=== PATIENT | female | born 1985 | race Hispanic/Latino ===

== ENCOUNTER 2020-04-12 15:09 | Emergency (ER) | payer BC, OTHER ==
[~2020-04-12 15:09] MED LIST: ACET-2247 PO; PREN1TAB80 PO
[2020-04-12 15:27] LABS: BASOPHILS % (AUTO) 0.4 % (0.0-5.0); EOSINOPHILS % (AUTO) 0.4 % (0.0-8.0); HEMATOCRIT 39.3 % (36-48); MEAN CORPUSCULAR HEMOGLOBIN 29.5 pg (27.0-33.0); MEAN CORPUSCULAR HGB CONC 33.8 g/dL (32.0-36.0); MEAN CORPUSCULAR VOLUME 87.1 fL (79-99); MONOCYTES % (AUTO) 5.3 % (3.0-13.0); NEUTROPHILS % (AUTO) 69.8 % (40.0-77.0); PLATELET COUNT (AUTO) 247 K/uL (130-400); RED BLOOD CELL COUNT(AUTO) 4.51 MIL/uL (4.00-5.50); WHITE BLOOD COUNT (AUTO) 8.2 K/uL (4.8-10.8)
[2020-04-12] MEDS ORDERED: ASPIRIN 325 MG TABLET ONE (15:33)
[2020-04-12 15:47] LABS: CREATININE 0.7 mg/dL (0.5-1.5); POTASSIUM 3.7 mmol/L (3.5-5.1)
[2020-04-12 15:50] LABS: INR 0.95 (0.85-1.15); PARTIAL THROMBOPLASTIN TIME 25.2 SEC (26.3-35.5); PROTHROMBIN TIME 10.3 SEC (9.6-11.6)
[2020-04-12 15:52] LABS: ALBUMIN 4.4 g/dL (3.5-5.0); BILIRUBIN,TOTAL 0.5 mg/dL (0.2-1.0); TOTAL PROTEIN, SERUM 7.9 g/dL (6.0-8.3)
[2020-04-12] MEDS ORDERED: ONDANSETRON HCL 4 MG/2 ML VIAL ONE (16:14)
== END 2020-04-12 19:08 | disposition home or self-care (01) ==
LOC: EDH 15:09
DX: R07.2 Precordial pain (principal); F41.1 Generalized anxiety disorder; J45.909 Unspecified asthma, uncomplicated; G43.909 Migraine, unspecified, not intractable, without status migrainosus
CPT/HCPCS: 36415; 71045; 80053; 82550; 83880; 84484 ×2; 85025; 85378; 85610; 85730; 93005 ×2; 96374; 99285; J2405

== ENCOUNTER 2022-04-16 20:55 | Emergency (ER) | payer BC ==
[~2022-04-16] VITALS: Ht 162.6 cm; Wt 91.2 kg
[2022-04-16] MEDS ORDERED: IPRATROPIUM/ALBUTEROL SULFATE 3 ML SOLUTION IH ONE (21:30)
[2022-04-16] MEDS ORDERED: BENZ-39 PO (22:11)
[2022-04-16] MEDS ORDERED: OSEL75 PO (22:11)
[2022-04-16 22:14] VITALS: BP 125/73
[2022-04-16] MEDS ORDERED: PREDNISONE 20 MG TABLET PO ONE (22:30)
== END 2022-04-16 22:23 | disposition home or self-care (01) ==
LOC: EDH 20:55
DX: J45.901 Unspecified asthma with (acute) exacerbation (principal); J11.1 Influenza due to unidentified influenza virus with other respiratory manifestations; E11.9 Type 2 diabetes mellitus without complications; Z90.89 Acquired absence of other organs; Z79.899 Other long term (current) drug therapy
CPT/HCPCS: 71045; 94640